=== PATIENT | male | born 1985 | race Caucasian/White ===

== ENCOUNTER 2019-01-19 01:23 | Emergency (ER) | payer SELFPAY ==
[2019-01-19 04:19] LABS: A TYPE INFLUENZA AG NEGATIVE (NEGATIVE); B INFLUENZA AG NEGATIVE (NEGATIVE)
--- NOTE | 2019-01-19 04:21 | ER Document Report ---
ED General - General Chief Complaint: Flu Symptoms Stated Complaint: FLU SYMPTOMS Time Seen by Provider: 01/19/19 04:14 Mode of Arrival: Ambulatory Information source: Patient TRAVEL OUTSIDE OF THE [place] IN LAST 30 DAYS: No - HPI Patient complains to provider of: Flu like symptoms Onset: Other - 3 days ago Onset/Duration: Gradual Quality of pain: Achy Severity: Moderate Pain Level: 3 Associated symptoms: Body/muscle aches, Productive cough, Fever Exacerbated by: Coughing Relieved by: Other - nothing Similar symptoms previously: No Recently seen / treated by doctor: No Notes: 33 year old male with no known PMH here for 3 days of a cough, congestion, body aches, sore throat, sinus congestion and off and on fevers. The patient is concerned he may have the flu. The patient has not been eating or drinking much in the last 2 days. The patient's daughter recently had a bronchitis. The patient says he has had pneumonia before and this does not feel the same. The patient says he just feels generally bad and he has missed work based on how he has been feeling. - Related Data Allergies/Adverse Reactions: No Known Allergies Allergy (Unverified 01/19/19 04:29) Home Medications: using otc meds without relief Past Medical History - Social History Smoking Status: Current Every Day Smoker Frequency of alcohol use: Social Drug Abuse: None Family History: Reviewed & Not Pertinent Patient has suicidal ideation: No Patient has homicidal ideation: No - Medical History Medical History: Negative Review of Systems - Review of Systems Constitutional: Fever, Malaise EENT: Sinus discharge Respiratory: Cough, Short of breath Gastrointestinal: Nausea Genitourinary: No symptoms reported Male Genitourinary: No symptoms reported Musculoskeletal: Joint pain, Muscle pain Skin: No symptoms reported Hematologic/Lymphatic: No symptoms reported Neurological/Psychological: Headaches Physical Exam - Vital signs Vitals: Temp Pulse Resp BP Pulse Ox 99.7 F 100 20 150/79 H 98 01/19/19 01:29 01/19/19 01:29 01/19/19 01:29 01/19/19 01:29 01/19/19 01:29 - Notes Notes: GENERAL: Well-appearing, well-nourished and in no acute distress. HEAD: Atraumatic, normocephalic. EYES: Pupils equal round and reactive to light, extraocular movements intact, sclera anicteric, conjunctiva are normal. ENT: Nares patent, sinus congestion noted, oropharynx clear without exudates. Moist mucous membranes. NECK: Normal range of motion, supple without lymphadenopathy or JVD. LUNGS: Breath sounds clear to auscultation bilaterally and equal. No wheezes rales or rhonchi. HEART: Regular rate and rhythm without murmurs, rubs or gallops. ABDOMEN: Soft, nontender, normoactive bowel sounds. No guarding, no rebound. No masses appreciated. EXTREMITIES: Normal range of motion, no pitting or edema. No clubbing or cyanosis. NEUROLOGICAL: Cranial nerves II through XII grossly intact. Normal speech, normal gait. PSYCH: Normal mood, normal affect. SKIN: Warm, Dry, normal turgor, no rashes or lesions noted. Course - Re-evaluation Re-evalutation: 01/19/19 05:21 The patient has viral URI like symptoms which initially sounded like he had the Flu (body aches, fevers, chills, nausea). Patient's rapid flu test is negative and he has had 3 days of symptoms so he is not a Tamiflu candidate. Chest Xray however shows a likely right sided pneumonia on my read. Patient felt better after treatment with fluids, toradol, zofran. Patient is safe for outpatient follow up. Will DC on Levaquin, Naproxen, and Zofran and have him follow up with his PCP if no better despite treatment. 01/19/19 05:23 - Vital Signs Vital signs: Temp Pulse Resp BP Pulse Ox 99.7 F 100 20 150/79 H 98 01/19/19 01:31 01/19/19 01:31 01/19/19 01:31 01/19/19 01:31 01/19/19 01:31 Discharge - Discharge Clinical Impression: Pneumonia Qualifiers: Pneumonia type: due to unspecified organism Laterality: right Lung location: unspecified part of lung Qualified Code(s): J18.9 - Pneumonia, unspecified organism Condition: Stable Disposition: HOME, SELF-CARE Instructions: Pneumonia ([facility]) Prescriptions: Levofloxacin [Levaquin 750 mg Tablet] 750 mg PO DAILY #5 tablet Naproxen 500 mg PO BID PRN #14 tablet PRN Reason: Ondansetron [Zofran Odt 4 mg Tablet] 1 tab PO Q8H PRN #15 tab.rapdis PRN Reason: For Nausea/Vomiting
[2019-01-19] MEDS ORDERED: KETOROLAC TROMETHAMINE INJ/PF 30 MG/1 ML SDV IV ONE (04:24)
[2019-01-19] MEDS ORDERED: NORMAL SALINE 1000 ML 1,000 ML IV ONE (04:25)
[2019-01-19] MEDS ORDERED: ONDANSETRON HCL INJ/PF 4 MG/2 ML SDV IV ONE (04:31)
[2019-01-19] MEDS ORDERED: LEVOFLOXACIN 750 MG TABLET PO ONE (05:27)
[2019-01-19 05:40] VITALS: BP 159/80
--- NOTE | 2019-01-19 06:07 | RADIOLOGY REPORT (SQ) ---
EXAM DESCRIPTION: XR CHEST 2 VIEWS COMPLETED DATE/TME: 01/19/2019 04:33 CLINICAL HISTORY: 33 years Male, cough, congestion. rule out pneumonia. COMPARISON: None. NUMBER OF VIEWS/TECHNIQUE: 2, Frontal, Lateral FINDINGS: Adequate lung volume, patchy and streaky opacities involving most of the right middle lobe. normal cardiac silhouette, and intact bony thorax. IMPRESSION: Right middle lobar pneumonia.
== END 2019-01-19 05:43 | disposition home or self-care (01) ==
LOC: ER 01:23
DX: J18.9 Pneumonia, unspecified organism (principal); J06.9 Acute upper respiratory infection, unspecified; B97.89 Other viral agents as the cause of diseases classified elsewhere; R05 Cough; J02.9 Acute pharyngitis, unspecified; R09.81 Nasal congestion; M79.10 Myalgia, unspecified site; M25.50 Pain in unspecified joint; R50.9 Fever, unspecified; R51 Headache; F17.200 Nicotine dependence, unspecified, uncomplicated
CPT/HCPCS: 99283; 96361; 96374; 96375; 87804; 71046; J1885; J2405; J7030